=== PATIENT | male | born 1935 | race Caucasian/White ===

== ENCOUNTER 2023-05-12 11:15 | Inpatient (IN) | payer OTHER, MEDICARE ==
[2023-05-12 13:18] LABS: VENOUS BASE EXCESS -5.6 mmol/L (-2-2); VENOUS O2 SATURATION 17.1 % (70-80); VENOUS PCO2 48.7 mmHg (38-52); VENOUS PH 7.262 (7.310-7.410)
[2023-05-12] MEDS ORDERED: ACETAMINOPHEN 1000 MG/100 ML BAG IVPB ONE (13:27)
[2023-05-12] MEDS ORDERED: ACETAMINOPHEN INJECTION 100 ML IVPB ONE (13:33)
[2023-05-12 13:35] LABS: BASO % 0.4 % (0-2.0); EOS % 0.1 % (0-4.5); HEMATOCRIT 41.9 % (35.4-49); HEMOGLOBIN 13.2 GM/dL (11.7-16.9); LYMPH % 7.2 % (8-40); MCH 30.2 pg (25.7-33.7); MCHC 31.6 g/dl (32.0-35.9); MEAN CELL VOLUME 95.6 fl (80-96); MEAN PLT VOLUME 9.7 fl (7.5-11.1); MONO % 7.5 % (3.8-10.2); NEUT % 84.8 % (42.8-82.8); PLATELET COUNT 129 10^3/uL (134-434); RBC 4.38 M/mm3 (4.00-5.60); RDW 15.4 % (11.9-15.9); WHITE BLOOD COUNT 6.8 K/mm3 (4.0-10.0)
[2023-05-12 13:57] LABS: INR 1.22 (0.83-1.09); PROTHROMBIN TIME (PATIENT) 14.1 SEC (9.7-13.0)
[2023-05-12 14:00] LABS: ACTIVATED PTT 32.4 SECONDS (25.2-36.5)
[2023-05-12 14:03] LABS: LACTIC ACID 2.5 mmol/L (0.4-2.0)
[2023-05-12 14:07] LABS: CALCIUM 10.5 mg/dL (8.5-10.1)
[2023-05-12 14:08] LABS: ALBUMIN 3.5 g/dl (3.4-5.0)
[2023-05-12 14:10] LABS: CREATININE 6.1 mg/dL (0.55-1.3)
[2023-05-12 14:12] LABS: TOT PROT 7.9 g/dl (6.4-8.2)
[2023-05-12] MEDS ORDERED: VANCOMYCIN/WATER 1250 MG 1,250 MG/250 ML BAG IVPB ONE ×2 (15:07→15:37)
[2023-05-12] MEDS ORDERED: PIPERACILLIN/TAZOB 3.375 GM 3.375 GM in DEXTROSE 5%-WATER - 50 ML IVPB ONE (15:07)
[2023-05-12] MEDS ORDERED: SODIUM CHLORIDE 0.9% 500 ML INFUS.BAG IV ONE (15:10)
[2023-05-12] MEDS ORDERED: SODIUM CHLORIDE 250 ML IV PRN (15:23)
[2023-05-12] MEDS ORDERED: PIPERACILLIN/TAZOB 3.375 GM 3.375 GM/50 ML BAG IVPB ONE (15:37)
[2023-05-12] MEDS ORDERED: HEPARIN NA (PORCINE) 5,000 UNITS/ML 1ML VIAL SQ SCH (15:45)
[2023-05-12] MEDS: INSULIN SLIDING SCALE (NOVOLOG) 1 VIAL SQ SCH (16:30)
[2023-05-12] MEDS ORDERED: PANTOPRAZOLE 40 MG TABLET PO ONE (17:50)
[2023-05-12] MEDS: PANTOPRAZOLE 40 MG TABLET PO SCH (17:54)
[2023-05-12] MEDS ORDERED: SENNOSIDES 8.6MG TABLET (FP) PO PRN (17:56)
[2023-05-12] MEDS ORDERED: APIXABAN 2.5 MG TABLET ONE (20:47)
[2023-05-12] MEDS ORDERED: SENNOSIDES 8.6MG TABLET (FP) PO ONE (20:48)
[2023-05-12] MEDS ORDERED: MIDODRINE HCL 5 MG TABLET ONE (20:48)
[2023-05-12] MEDS ORDERED: SEVELAMER CARBONATE 800 MG TAB (FP) ONE (20:48)
[2023-05-12] MEDS ORDERED: INSULIN (LEVEMIR) 100 UNITS/ML UNITS SQ ONE (20:52)
[2023-05-12] MEDS: INSULIN (LEVEMIR) 100 UNITS/ML UNITS SQ SCH (22:26)
[2023-05-12] MEDS: SEVELAMER CARBONATE 800 MG TAB (FP) PO SCH (22:26)
[2023-05-12] MEDS: MIDODRINE HCL 5 MG TABLET PO SCH (22:26)
[2023-05-12] MEDS: APIXABAN 2.5 MG TABLET PO SCH (22:26)
[2023-05-12] MEDS: SENNOSIDES 8.6MG TABLET (FP) PO SCH (22:27)
[2023-05-13] MEDS: INSULIN SLIDING SCALE (NOVOLOG) 1 VIAL SQ SCH ×3 (06:46→17:24)
[2023-05-13] MEDS: INSULIN (LEVEMIR) 100 UNITS/ML UNITS SQ SCH ×2 (06:46→21:47)
[2023-05-13] MEDS ORDERED: TAMSULOSIN HCL 0.4 MG CAP PO SCH (08:30)
[2023-05-13] MEDS ORDERED: FINASTERIDE 5 MG TABLET (FP) PO SCH (10:00)
[2023-05-13] MEDS ORDERED: TORSEMIDE 20 MG TABLET (FP) PO SCH (10:00)
[2023-05-13] MEDS: CALCITRIOL 0.25 MCG CAPSULE (FP) PO SCH (10:04)
[2023-05-13] MEDS: ATORVASTATIN CA 80 MG TABLET (FP) PO SCH (10:04)
[2023-05-13] MEDS: CLOPIDOGREL BISULFATE 75 MG TABLET (FP) PO SCH (10:05)
[2023-05-13] MEDS: MIDODRINE HCL 5 MG TABLET PO SCH ×3 (10:05→17:51)
[2023-05-13] MEDS: APIXABAN 2.5 MG TABLET PO SCH ×2 (10:05→21:48)
[2023-05-13] MEDS: SEVELAMER CARBONATE 800 MG TAB (FP) PO SCH ×3 (10:05→19:14)
[2023-05-13] MEDS: PANTOPRAZOLE 40 MG TABLET PO SCH (10:05)
[2023-05-13 10:07] LABS: HEMATOCRIT 35.9 % (35.4-49); HEMOGLOBIN 11.5 GM/dL (11.7-16.9); MCH 30.6 pg (25.7-33.7); MCHC 32.1 g/dl (32.0-35.9); MEAN CELL VOLUME 95.5 fl (80-96); MEAN PLT VOLUME 10.2 fl (7.5-11.1); PLATELET COUNT 113 10^3/uL (134-434); RBC 3.76 M/mm3 (4.00-5.60); RDW 15.4 % (11.9-15.9); WHITE BLOOD COUNT 5.5 K/mm3 (4.0-10.0)
[2023-05-13 10:40] LABS: POTASSIUM 4.1 mmol/L (3.5-5.1)
[2023-05-13 10:45] LABS: CALCIUM 9.1 mg/dL (8.5-10.1)
[2023-05-13 10:47] LABS: BLOOD UREA NITROGEN 61.2 mg/dL (7-18)
[2023-05-13 10:49] LABS: CREATININE 6.7 mg/dL (0.55-1.3)
[2023-05-13 10:50] LABS: BILIRUBIN,TOTAL 0.7 mg/dL (0.2-1)
[2023-05-13 10:54] LABS: ALBUMIN 2.7 g/dl (3.4-5.0); TOT PROT 5.9 g/dl (6.4-8.2)
[2023-05-13 12:11] LABS: ANISOCYTOSIS 0; HELMET CELLS 0; HOWELL-JOLLY BODIES 0; MACROCYTOSIS 0; OVALOCYTE 0; ROULEAU 0; SICKELED CELLS 0; TARGET CELLS 0; TEAR DROP CELLS 0; TOXIC GRANULATION 0
[2023-05-13] MEDS ORDERED: PIPERACILLIN/TAZOBACTAM 2.25 GM VIAL IVPB ONE (12:53)
[2023-05-13] MEDS: PIPERACILLIN/TAZOB 2.25 GM 2.25 GM in DEXTROSE 5%-WATER - 50 ML IVPB SCH ×2 (13:13→17:51)
[2023-05-13] MEDS ORDERED: SODIUM CHLORIDE 250 ML IV PRN (13:34)
[2023-05-13] MEDS: ALBUMIN HUMAN 25% 12.5 GM/50 ML VIAL IV SCH ×4 (14:30→17:51)
[2023-05-13] MEDS: LIPASE/PROTEASE/AMYLASE 24,000 UNIT CAPSULE PO SCH (17:53)
[2023-05-13 19:15] LABS: EPI CELLS 9 /uL (0-25.1); HYALINE CASTS 1 /uL (0-3.1); URINE APPEARANCE CLEAR; URINE BACTERIA 2 /uL (0-1359); URINE BILIRUBIN NEGATIVE (NEGATIVE); URINE COLOR YELLOW; URINE GLUCOSE (UA) 2+ (NEGATIVE); URINE KETONE NEGATIVE (NEGATIVE); URINE LEUK ESTERASE TRACE (NEGATIVE); URINE NITRITE NEGATIVE (NEGATIVE); URINE PROTEIN 1+ (NEGATIVE); URINE UROBILINOGEN 0.2 mg/dL (0.2-1.0); URINE WBC 41 /uL (0-25.8)
[2023-05-13 19:40] LABS: URINE CRYSTALS FEW /hpf; URINE RBC 70.7 /uL (0-23.9)
[2023-05-13 19:41] LABS: YEAST NONE SEEN (NEGATIVE)
[2023-05-13] MEDS: SENNOSIDES 8.6MG TABLET (FP) PO SCH (21:48)
[2023-05-13] MEDS ORDERED: ATORVASTATIN CA 80 MG TABLET (FP) PO SCH (22:00)
[2023-05-13] MEDS ORDERED: MELATONIN 1 MG TABLET PO ONE (22:45)
[2023-05-14] MEDS: PIPERACILLIN/TAZOB 2.25 GM 2.25 GM in DEXTROSE 5%-WATER - 50 ML IVPB SCH ×3 (01:22→17:44)
[2023-05-14] MEDS: INSULIN SLIDING SCALE (NOVOLOG) 1 VIAL SQ SCH ×4 (06:15→22:20)
[2023-05-14] MEDS ORDERED: INSULIN (LEVEMIR) 100 UNITS/ML UNITS SQ SCH (07:00)
[2023-05-14] MEDS: MIDODRINE HCL 5 MG TABLET PO SCH ×2 (07:10→14:47)
[2023-05-14] MEDS: INSULIN (LEVEMIR) 100 UNITS/ML UNITS SQ SCH ×2 (07:11→22:21)
[2023-05-14 08:34] LABS: HEMATOCRIT 30.6 % (35.4-49); HEMOGLOBIN 10.2 GM/dL (11.7-16.9); MCH 30.9 pg (25.7-33.7); MCHC 33.3 g/dl (32.0-35.9); MEAN CELL VOLUME 92.9 fl (80-96); MEAN PLT VOLUME 10.2 fl (7.5-11.1); PLATELET COUNT 96 10^3/uL (134-434); RBC 3.29 M/mm3 (4.00-5.60); RDW 15.5 % (11.9-15.9); WHITE BLOOD COUNT 3.8 K/mm3 (4.0-10.0)
[2023-05-14 08:50] LABS: POTASSIUM 3.6 mmol/L (3.5-5.1)
[2023-05-14 09:04] LABS: ALBUMIN 2.7 g/dl (3.4-5.0); CALCIUM 8.5 mg/dL (8.5-10.1)
[2023-05-14 09:07] LABS: CREATININE 4.2 mg/dL (0.55-1.3)
[2023-05-14 09:09] LABS: BILIRUBIN,TOTAL 0.7 mg/dL (0.2-1); TOT PROT 5.7 g/dl (6.4-8.2)
[2023-05-14 09:20] LABS: BLOOD UREA NITROGEN 31.1 mg/dL (7-18)
[2023-05-14] MEDS: CALCITRIOL 0.25 MCG CAPSULE (FP) PO SCH (09:43)
[2023-05-14] MEDS: APIXABAN 2.5 MG TABLET PO SCH ×2 (09:44→22:20)
[2023-05-14] MEDS: SEVELAMER CARBONATE 800 MG TAB (FP) PO SCH ×3 (09:44→17:45)
[2023-05-14] MEDS: PANTOPRAZOLE 40 MG TABLET PO SCH (09:44)
[2023-05-14] MEDS: ATORVASTATIN CA 80 MG TABLET (FP) PO SCH (09:44)
[2023-05-14] MEDS: CLOPIDOGREL BISULFATE 75 MG TABLET (FP) PO SCH (09:44)
[2023-05-14] MEDS: LIPASE/PROTEASE/AMYLASE 24,000 UNIT CAPSULE PO SCH ×3 (09:45→17:45)
[2023-05-14 10:12] LABS: ANISOCYTOSIS 1+; MACROCYTOSIS 0
[2023-05-14] MEDS ORDERED: INSULIN (NOVOLOG) ASPART 100 UNITS/ML 10ML VIAL ONE ×2 (11:43→17:18)
[2023-05-14] MEDS: SENNOSIDES 8.6MG TABLET (FP) PO SCH (22:20)
[2023-05-15] MEDS: SENNOSIDES 8.6MG TABLET (FP) PO SCH ×2 (00:17→21:34)
[2023-05-15] MEDS: PIPERACILLIN/TAZOB 2.25 GM 2.25 GM in DEXTROSE 5%-WATER - 50 ML IVPB SCH ×3 (01:14→17:40)
[2023-05-15] MEDS: ACETAMINOPHEN 325 MG TABLET (FP) PO PRN (01:20)
[2023-05-15] MEDS ORDERED: INSULIN (NOVOLOG) ASPART 100 UNITS/ML 10ML VIAL ONE ×2 (06:03→21:26)
[2023-05-15] MEDS: INSULIN (LEVEMIR) 100 UNITS/ML UNITS SQ SCH ×2 (06:48→21:32)
[2023-05-15] MEDS: INSULIN SLIDING SCALE (NOVOLOG) 1 VIAL SQ SCH ×4 (06:49→21:33)
[2023-05-15] MEDS: MIDODRINE HCL 5 MG TABLET PO SCH ×2 (06:49→14:30)
[2023-05-15 08:13] LABS: BASO % 0.9 % (0-2.0); EOS % 4.1 % (0-4.5); HEMATOCRIT 32.6 % (35.4-49); HEMOGLOBIN 10.4 GM/dL (11.7-16.9); LYMPH % 18.1 % (8-40); MCH 30.5 pg (25.7-33.7); MCHC 31.9 g/dl (32.0-35.9); MEAN CELL VOLUME 95.7 fl (80-96); MEAN PLT VOLUME 9.5 fl (7.5-11.1); NEUT % 56.9 % (42.8-82.8); PLATELET COUNT 112 10^3/uL (134-434); RDW 15.3 % (11.9-15.9); WHITE BLOOD COUNT 3.8 K/mm3 (4.0-10.0)
[2023-05-15] MEDS: SEVELAMER CARBONATE 800 MG TAB (FP) PO SCH ×3 (08:24→17:40)
[2023-05-15] MEDS: LIPASE/PROTEASE/AMYLASE 24,000 UNIT CAPSULE PO SCH ×3 (08:24→17:40)
[2023-05-15 08:37] LABS: POTASSIUM 4.3 mmol/L (3.5-5.1)
[2023-05-15 08:45] LABS: CALCIUM 9.1 mg/dL (8.5-10.1)
[2023-05-15 08:46] LABS: ALBUMIN 2.7 g/dl (3.4-5.0); BLOOD UREA NITROGEN 39.9 mg/dL (7-18)
[2023-05-15 08:48] LABS: BILIRUBIN,TOTAL 0.8 mg/dL (0.2-1)
[2023-05-15 08:49] LABS: CREATININE 5.5 mg/dL (0.55-1.3)
[2023-05-15 08:50] LABS: TOT PROT 5.8 g/dl (6.4-8.2)
[2023-05-15] MEDS: CALCITRIOL 0.25 MCG CAPSULE (FP) PO SCH (10:04)
[2023-05-15] MEDS: ATORVASTATIN CA 80 MG TABLET (FP) PO SCH (10:05)
[2023-05-15] MEDS: APIXABAN 2.5 MG TABLET PO SCH ×2 (10:05→21:32)
[2023-05-15] MEDS: CLOPIDOGREL BISULFATE 75 MG TABLET (FP) PO SCH (10:05)
[2023-05-15] MEDS: PANTOPRAZOLE 40 MG TABLET PO SCH (10:05)
[2023-05-15] MEDS ORDERED: SODIUM CHLORIDE 250 ML IV PRN (13:25)
[2023-05-15] MEDS: TORSEMIDE 20 MG TABLET (FP) PO SCH (15:08)
[2023-05-15] MEDS ORDERED: MELATONIN 5 MG TABLETS PO PRN (22:00)
[2023-05-16] MEDS: PIPERACILLIN/TAZOB 2.25 GM 2.25 GM in DEXTROSE 5%-WATER - 50 ML IVPB SCH ×4 (01:50→17:38)
[2023-05-16] MEDS: INSULIN SLIDING SCALE (NOVOLOG) 1 VIAL SQ SCH ×5 (06:18→22:42)
[2023-05-16] MEDS: INSULIN (LEVEMIR) 100 UNITS/ML UNITS SQ SCH ×2 (06:22→22:37)
[2023-05-16] MEDS: MIDODRINE HCL 5 MG TABLET PO SCH ×2 (06:22→14:58)
[2023-05-16] MEDS: SEVELAMER CARBONATE 800 MG TAB (FP) PO SCH ×3 (08:54→17:34)
[2023-05-16] MEDS: LIPASE/PROTEASE/AMYLASE 24,000 UNIT CAPSULE PO SCH ×4 (08:54→17:34)
[2023-05-16 09:50] LABS: BASO % 0.8 % (0-2.0); EOS % 3.1 % (0-4.5); HEMATOCRIT 34.8 % (35.4-49); HEMOGLOBIN 11.1 GM/dL (11.7-16.9); LYMPH % 22.4 % (8-40); MCH 30.2 pg (25.7-33.7); MCHC 31.9 g/dl (32.0-35.9); MEAN CELL VOLUME 94.8 fl (80-96); MEAN PLT VOLUME 10.1 fl (7.5-11.1); NEUT % 59.7 % (42.8-82.8); PLATELET COUNT 144 10^3/uL (134-434); RBC 3.68 M/mm3 (4.00-5.60); RDW 14.9 % (11.9-15.9); WHITE BLOOD COUNT 5.8 K/mm3 (4.0-10.0)
[2023-05-16 10:05] LABS: POTASSIUM 4.8 mmol/L (3.5-5.1)
[2023-05-16 10:08] LABS: CALCIUM 8.4 mg/dL (8.5-10.1)
[2023-05-16 10:09] LABS: ALBUMIN 2.7 g/dl (3.4-5.0); BLOOD UREA NITROGEN 48.6 mg/dL (7-18)
[2023-05-16] MEDS: ALBUMIN HUMAN 25% 12.5 GM/50 ML VIAL IV SCH ×4 (10:10→12:14)
[2023-05-16 10:12] LABS: CREATININE 6.2 mg/dL (0.55-1.3)
[2023-05-16 10:14] LABS: BILIRUBIN,TOTAL 1.1 mg/dL (0.2-1)
[2023-05-16] MEDS ORDERED: EPOETIN ALFA-EPBX 4,000 UNIT/ML VIAL IVPUSH ONE (10:45)
[2023-05-16] MEDS: TORSEMIDE 20 MG TABLET (FP) PO SCH (10:46)
[2023-05-16] MEDS: CALCITRIOL 0.25 MCG CAPSULE (FP) PO SCH ×2 (10:56→12:54)
[2023-05-16] MEDS: PANTOPRAZOLE 40 MG TABLET PO SCH ×2 (10:56→12:55)
[2023-05-16] MEDS: CLOPIDOGREL BISULFATE 75 MG TABLET (FP) PO SCH ×2 (10:56→12:54)
[2023-05-16] MEDS: APIXABAN 2.5 MG TABLET PO SCH ×3 (10:56→22:29)
[2023-05-16] MEDS: ATORVASTATIN CA 80 MG TABLET (FP) PO SCH ×2 (10:56→12:54)
[2023-05-16] MEDS ORDERED: INSULIN (NOVOLOG) ASPART 100 UNITS/ML 10ML VIAL ONE ×2 (12:45→22:39)
[2023-05-16] MEDS ORDERED: ALBUMIN HUMAN 25% 12.5 GM/50 ML VIAL IV SCH (13:30)
[2023-05-16] MEDS: ACETAMINOPHEN 325 MG TABLET (FP) PO PRN (14:58)
[2023-05-16] MEDS: SENNOSIDES 8.6MG TABLET (FP) PO SCH (22:29)
[2023-05-17] MEDS: PIPERACILLIN/TAZOB 2.25 GM 2.25 GM in DEXTROSE 5%-WATER - 50 ML IVPB SCH ×2 (01:22→09:22)
[2023-05-17] MEDS: MIDODRINE HCL 5 MG TABLET PO SCH ×2 (06:22→14:45)
[2023-05-17] MEDS: INSULIN (LEVEMIR) 100 UNITS/ML UNITS SQ SCH ×2 (06:34→22:37)
[2023-05-17] MEDS: INSULIN SLIDING SCALE (NOVOLOG) 1 VIAL SQ SCH ×5 (06:34→20:52)
[2023-05-17] MEDS: LIPASE/PROTEASE/AMYLASE 24,000 UNIT CAPSULE PO SCH ×3 (09:22→17:13)
[2023-05-17] MEDS: SEVELAMER CARBONATE 800 MG TAB (FP) PO SCH ×3 (09:22→17:13)
[2023-05-17] MEDS: PANTOPRAZOLE 40 MG TABLET PO SCH (09:23)
[2023-05-17] MEDS: APIXABAN 2.5 MG TABLET PO SCH ×2 (09:23→22:37)
[2023-05-17] MEDS: CALCITRIOL 0.25 MCG CAPSULE (FP) PO SCH (09:23)
[2023-05-17] MEDS: ATORVASTATIN CA 80 MG TABLET (FP) PO SCH (09:23)
[2023-05-17] MEDS: CLOPIDOGREL BISULFATE 75 MG TABLET (FP) PO SCH (09:23)
[2023-05-17] MEDS: TORSEMIDE 20 MG TABLET (FP) PO SCH (10:40)
[2023-05-17] MEDS ORDERED: INSULIN (NOVOLOG) ASPART 100 UNITS/ML 10ML VIAL ONE ×2 (12:07→20:11)
[2023-05-17] MEDS: CEFTRIAXONE 2 GM in DEXTROSE 5%-WATER 100 ML IVPB SCH (14:45)
[2023-05-17] MEDS: SENNOSIDES 8.6MG TABLET (FP) PO SCH ×2 (22:37→22:44)
[2023-05-18] MEDS: INSULIN SLIDING SCALE (NOVOLOG) 1 VIAL SQ SCH ×6 (00:47→20:17)
[2023-05-18] MEDS ORDERED: INSULIN (NOVOLOG) ASPART 100 UNITS/ML 10ML VIAL ONE ×3 (00:48→11:13)
[2023-05-18] MEDS: INSULIN (LEVEMIR) 100 UNITS/ML UNITS SQ SCH ×2 (06:03→22:37)
[2023-05-18] MEDS: MIDODRINE HCL 5 MG TABLET PO SCH ×2 (06:04→13:53)
[2023-05-18] MEDS: LIPASE/PROTEASE/AMYLASE 24,000 UNIT CAPSULE PO SCH ×3 (08:18→17:20)
[2023-05-18] MEDS: SEVELAMER CARBONATE 800 MG TAB (FP) PO SCH ×3 (08:18→17:20)
[2023-05-18] MEDS: APIXABAN 2.5 MG TABLET PO SCH (09:16)
[2023-05-18] MEDS: CALCITRIOL 0.25 MCG CAPSULE (FP) PO SCH (09:16)
[2023-05-18] MEDS: CEFTRIAXONE 2 GM in DEXTROSE 5%-WATER 100 ML IVPB SCH (09:16)
[2023-05-18] MEDS: PANTOPRAZOLE 40 MG TABLET PO SCH (09:16)
[2023-05-18] MEDS: TORSEMIDE 20 MG TABLET (FP) PO SCH (09:16)
[2023-05-18] MEDS: CLOPIDOGREL BISULFATE 75 MG TABLET (FP) PO SCH (09:16)
[2023-05-18] MEDS: ATORVASTATIN CA 80 MG TABLET (FP) PO SCH (09:17)
[2023-05-18 09:31] LABS: BASO % 0.8 % (0-2.0); EOS % 2.4 % (0-4.5); HEMATOCRIT 38.4 % (35.4-49); HEMOGLOBIN 12.7 GM/dL (11.7-16.9); LYMPH % 18.1 % (8-40); MCH 30.7 pg (25.7-33.7); MCHC 33.1 g/dl (32.0-35.9); MEAN CELL VOLUME 92.8 fl (80-96); MEAN PLT VOLUME 10.1 fl (7.5-11.1); MONO % 10.9 % (3.8-10.2); NEUT % 67.8 % (42.8-82.8); PLATELET COUNT 185 10^3/uL (134-434); RBC 4.13 M/mm3 (4.00-5.60); RDW 14.8 % (11.9-15.9); WHITE BLOOD COUNT 7.8 K/mm3 (4.0-10.0)
[2023-05-18 09:56] LABS: POTASSIUM 4.5 mmol/L (3.5-5.1)
[2023-05-18 09:58] LABS: CALCIUM 8.9 mg/dL (8.5-10.1)
[2023-05-18 09:59] LABS: ALBUMIN 2.8 g/dl (3.4-5.0); BLOOD UREA NITROGEN 40.7 mg/dL (7-18)
[2023-05-18 10:02] LABS: CREATININE 5.3 mg/dL (0.55-1.3)
[2023-05-18 10:04] LABS: BILIRUBIN,TOTAL 0.6 mg/dL (0.2-1); TOT PROT 6.5 g/dl (6.4-8.2)
[2023-05-18 16:38] VITALS: BMI 19.8
[2023-05-18] MEDS ORDERED: PANTOPRAZOLE 40 MG TABLET PO SCH (19:00)
[2023-05-18] MEDS: PANTOPRAZOLE SODIUM 40 MG VIAL IVPUSH SCH (19:51)
[2023-05-18] MEDS: SENNOSIDES 8.6MG TABLET (FP) PO SCH (22:38)
[2023-05-19] MEDS: INSULIN SLIDING SCALE (NOVOLOG) 1 VIAL SQ SCH ×6 (01:02→21:29)
[2023-05-19] MEDS: MIDODRINE HCL 5 MG TABLET PO SCH ×2 (06:27→16:36)
[2023-05-19] MEDS: LIPASE/PROTEASE/AMYLASE 24,000 UNIT CAPSULE PO SCH ×4 (07:04→20:49)
[2023-05-19] MEDS: SEVELAMER CARBONATE 800 MG TAB (FP) PO SCH ×4 (07:04→20:49)
[2023-05-19] MEDS ORDERED: DEXTROSE 50%-WATER 25 GM/50 ML DISP.SYRIN IVPUSH ONE ×2 (08:15→08:30)
[2023-05-19] MEDS: CALCITRIOL 0.25 MCG CAPSULE (FP) PO SCH ×2 (09:04→20:47)
[2023-05-19] MEDS: ATORVASTATIN CA 80 MG TABLET (FP) PO SCH ×2 (09:04→20:46)
[2023-05-19] MEDS: TORSEMIDE 20 MG TABLET (FP) PO SCH ×2 (09:04→20:50)
[2023-05-19] MEDS: CEFTRIAXONE 2 GM in DEXTROSE 5%-WATER 100 ML IVPB SCH ×2 (09:04→20:45)
[2023-05-19 09:24] LABS: BASO % 0.8 % (0-2.0); EOS % 0.3 % (0-4.5); HEMATOCRIT 36.1 % (35.4-49); HEMOGLOBIN 12.3 GM/dL (11.7-16.9); LYMPH % 9.2 % (8-40); MCH 31.8 pg (25.7-33.7); MEAN CELL VOLUME 93.7 fl (80-96); MEAN PLT VOLUME 9.7 fl (7.5-11.1); MONO % 11.5 % (3.8-10.2); NEUT % 78.2 % (42.8-82.8); PLATELET COUNT 189 10^3/uL (134-434); RBC 3.85 M/mm3 (4.00-5.60); RDW 14.6 % (11.9-15.9); WHITE BLOOD COUNT 10.8 K/mm3 (4.0-10.0)
[2023-05-19 09:42] LABS: POTASSIUM 5.5 mmol/L (3.5-5.1)
[2023-05-19] MEDS: CLOPIDOGREL BISULFATE 75 MG TABLET (FP) PO SCH ×2 (09:44→20:47)
[2023-05-19] MEDS: PANTOPRAZOLE SODIUM 40 MG VIAL IVPUSH SCH (09:51)
[2023-05-19 09:54] LABS: ALBUMIN 2.8 g/dl (3.4-5.0); CALCIUM 9.7 mg/dL (8.5-10.1)
[2023-05-19 09:57] LABS: BLOOD UREA NITROGEN 48.8 mg/dL (7-18); CREATININE 6.4 mg/dL (0.55-1.3)
[2023-05-19 09:59] LABS: BILIRUBIN,TOTAL 0.9 mg/dL (0.2-1); TOT PROT 6.7 g/dl (6.4-8.2)
[2023-05-19] MEDS: ACETAMINOPHEN 325 MG TABLET (FP) PO PRN ×2 (11:16→22:21)
[2023-05-19] MEDS ORDERED: SODIUM CHLORIDE 250 ML IV PRN ×2 (11:41→14:34)
[2023-05-19] MEDS ORDERED: HEPARIN NA (PORCINE) 5,000 UNITS/ML 1ML VIAL ONE (12:19)
[2023-05-19] MEDS ORDERED: LIDOCAINE HCL 1%, 10 MG/ML (20ML VIAL) ONE (12:40)
[2023-05-19] MEDS ORDERED: FENTANYL CITRATE/PF 50 MCG/ML VIAL ONE (13:16)
[2023-05-19] MEDS ORDERED: MIDAZOLAM HCL 2 MG/2 ML SINGLE DOSE VIAL ONE (13:16)
[2023-05-19] MEDS ORDERED: ONDANSETRON 4 MG/2 ML VIAL ONE (13:34)
[2023-05-19] MEDS ORDERED: ceFAZolin SODIUM 1 GM VIAL ONE (13:34)
[2023-05-19] MEDS ORDERED: ceFAZolin SODIUM 1 GM VIAL IVPB ONE (13:35)
[2023-05-19] MEDS ORDERED: PROPOFOL 20 ML ONE (13:36)
[2023-05-19] MEDS ORDERED: HEPARIN NA (PORCINE) 5,000 UNITS/ML 1ML VIAL SQ ONE (13:37)
[2023-05-19] MEDS ORDERED: LIDOCAINE 1% P/F 10 MG/ML VIAL INF ONE (13:37)
[2023-05-19] MEDS ORDERED: HEPARIN NA (PORCINE) 1,000 UNITS/ML 10ML M-D VIAL SQ ONE (13:37)
[2023-05-19] MEDS ORDERED: SODIUM CHLORIDE 1,000 ML IV SCH (14:15)
[2023-05-19] MEDS ORDERED: MELATONIN 5 MG TABLETS PO PRN (14:34)
[2023-05-19] MEDS ORDERED: MIDODRINE HCL 5 MG TABLET PO SCH (15:30)
[2023-05-19] MEDS: SODIUM CHLORIDE 1,000 ML IV SCH (18:26)
[2023-05-19] MEDS ORDERED: INSULIN (NOVOLOG) ASPART 100 UNITS/ML 10ML VIAL ONE (21:19)
[2023-05-19] MEDS: INSULIN (LEVEMIR) 100 UNITS/ML UNITS SQ SCH (21:27)
[2023-05-19] MEDS: SENNOSIDES 8.6MG TABLET (FP) PO SCH (21:30)
[2023-05-19] MEDS: APIXABAN 2.5 MG TABLET PO SCH (21:30)
[2023-05-20] MEDS ORDERED: INSULIN (NOVOLOG) ASPART 100 UNITS/ML 10ML VIAL ONE ×4 (01:01→23:30)
[2023-05-20] MEDS: INSULIN SLIDING SCALE (NOVOLOG) 1 VIAL SQ SCH ×7 (01:02→22:32)
[2023-05-20] MEDS: MIDODRINE HCL 5 MG TABLET PO SCH ×2 (06:30→13:51)
[2023-05-20] MEDS: INSULIN (LEVEMIR) 100 UNITS/ML UNITS SQ SCH ×2 (06:30→22:38)
[2023-05-20] MEDS ORDERED: ALBUMIN HUMAN 25% 12.5 GM/50 ML VIAL IVPB SCH (07:45)
[2023-05-20] MEDS ORDERED: SODIUM CHLORIDE 250 ML IV PRN (07:45)
[2023-05-20] MEDS: LIPASE/PROTEASE/AMYLASE 24,000 UNIT CAPSULE PO SCH ×3 (08:27→18:01)
[2023-05-20] MEDS: SEVELAMER CARBONATE 800 MG TAB (FP) PO SCH ×3 (08:28→18:01)
[2023-05-20 08:31] LABS: BASO % 1.2 % (0-2.0); HEMATOCRIT 35.8 % (35.4-49); HEMOGLOBIN 11.3 GM/dL (11.7-16.9); LYMPH % 11.5 % (8-40); MCH 30.2 pg (25.7-33.7); MCHC 31.4 g/dl (32.0-35.9); MEAN PLT VOLUME 9.6 fl (7.5-11.1); MONO % 15.2 % (3.8-10.2); NEUT % 70.1 % (42.8-82.8); PLATELET COUNT 208 10^3/uL (134-434); RBC 3.73 M/mm3 (4.00-5.60); RDW 15.3 % (11.9-15.9); WHITE BLOOD COUNT 8.5 K/mm3 (4.0-10.0)
[2023-05-20 08:59] LABS: POTASSIUM 4.4 mmol/L (3.5-5.1)
[2023-05-20 09:03] LABS: BLOOD UREA NITROGEN 27.4 mg/dL (7-18); CALCIUM 8.8 mg/dL (8.5-10.1)
[2023-05-20 09:07] LABS: CREATININE 4.1 mg/dL (0.55-1.3)
[2023-05-20] MEDS ORDERED: PANTOPRAZOLE SODIUM 40 MG VIAL IVPUSH SCH (10:00)
[2023-05-20 11:11] VITALS: RESP 18
[2023-05-20] MEDS: CLOPIDOGREL BISULFATE 75 MG TABLET (FP) PO SCH (13:37)
[2023-05-20] MEDS: TORSEMIDE 20 MG TABLET (FP) PO SCH (13:37)
[2023-05-20] MEDS: CALCITRIOL 0.25 MCG CAPSULE (FP) PO SCH (13:38)
[2023-05-20] MEDS: ATORVASTATIN CA 80 MG TABLET (FP) PO SCH (13:38)
[2023-05-20] MEDS: APIXABAN 2.5 MG TABLET PO SCH ×2 (13:39→22:33)
[2023-05-20] MEDS: CEFTRIAXONE 2 GM in DEXTROSE 5%-WATER 100 ML IVPB SCH (13:40)
[2023-05-20] MEDS: ACETAMINOPHEN 325 MG TABLET (FP) PO PRN (16:48)
[2023-05-20] MEDS: SODIUM CHLORIDE 1,000 ML IV SCH (18:08)
[2023-05-20] MEDS ORDERED: PANTOPRAZOLE 40 MG TABLET PO SCH (22:09)
[2023-05-20] MEDS ORDERED: MAG HYDROX/AL HYDROX/SIMETH 30 ML UNIT-DOSE CUP PO ONE (22:11)
[2023-05-20] MEDS ORDERED: ACETAMINOPHEN 325 MG TABLET (FP) PO ONE (22:14)
[2023-05-20] MEDS: SENNOSIDES 8.6MG TABLET (FP) PO SCH (22:33)
[2023-05-20] MEDS ORDERED: INSULIN (LEVEMIR) 100 UNITS/ML UNITS SQ ONE (23:30)
[2023-05-21] MEDS: INSULIN SLIDING SCALE (NOVOLOG) 1 VIAL SQ SCH ×4 (00:51→12:21)
[2023-05-21] MEDS: MIDODRINE HCL 5 MG TABLET PO SCH ×2 (06:58→14:01)
[2023-05-21] MEDS ORDERED: INSULIN (LEVEMIR) 100 UNITS/ML UNITS SQ SCH (07:01)
[2023-05-21] MEDS: INSULIN (LEVEMIR) 100 UNITS/ML UNITS SQ SCH (08:22)
[2023-05-21] MEDS: LIPASE/PROTEASE/AMYLASE 24,000 UNIT CAPSULE PO SCH ×2 (08:28→12:20)
[2023-05-21] MEDS: SEVELAMER CARBONATE 800 MG TAB (FP) PO SCH ×2 (08:29→12:21)
[2023-05-21] MEDS: CEFTRIAXONE 2 GM in DEXTROSE 5%-WATER 100 ML IVPB SCH (09:31)
[2023-05-21] MEDS: APIXABAN 2.5 MG TABLET PO SCH (09:32)
[2023-05-21] MEDS: CLOPIDOGREL BISULFATE 75 MG TABLET (FP) PO SCH (09:32)
[2023-05-21] MEDS: TORSEMIDE 20 MG TABLET (FP) PO SCH (09:32)
[2023-05-21] MEDS: ATORVASTATIN CA 80 MG TABLET (FP) PO SCH (09:32)
[2023-05-21] MEDS: CALCITRIOL 0.25 MCG CAPSULE (FP) PO SCH (09:32)
[2023-05-21 09:33] LABS: BASO % 1.1 % (0-2.0); EOS % 1.3 % (0-4.5); HEMOGLOBIN 10.5 GM/dL (11.7-16.9); LYMPH % 9.3 % (8-40); MCH 30.6 pg (25.7-33.7); MCHC 31.8 g/dl (32.0-35.9); MEAN CELL VOLUME 96.1 fl (80-96); MEAN PLT VOLUME 9.7 fl (7.5-11.1); MONO % 12.2 % (3.8-10.2); NEUT % 76.1 % (42.8-82.8); PLATELET COUNT 202 10^3/uL (134-434); RBC 3.43 M/mm3 (4.00-5.60); RDW 15.2 % (11.9-15.9); WHITE BLOOD COUNT 8.9 K/mm3 (4.0-10.0)
[2023-05-21 09:51] LABS: POTASSIUM 4.7 mmol/L (3.5-5.1)
[2023-05-21 09:52] LABS: CALCIUM 9.1 mg/dL (8.5-10.1)
[2023-05-21 09:53] LABS: BLOOD UREA NITROGEN 24.2 mg/dL (7-18)
[2023-05-21 09:56] LABS: CREATININE 3.8 mg/dL (0.55-1.3)
[2023-05-21] MEDS ORDERED: PANTOPRAZOLE 40 MG TABLET PO SCH (10:00)
[2023-05-21] MEDS: ACETAMINOPHEN 325 MG TABLET (FP) PO PRN (10:27)
[2023-05-21 15:30] VITALS: BP 118/55; PULSE 76; TEMP 98.3
== END 2023-05-21 15:58 | disposition home or self-care (01) | DRG 193 ==
LOC: JER 11:15 → JERBED 15:03 → J8W 05-13 02:40
PROVIDERS: ADMIT Internal Medicine; ATTEND Internal Medicine
PROC: 5A1D70Z Performance of Urinary Filtration, Intermittent, Less than 6 Hours Per Day (ICD-10-PCS; principal; 2023-05-13)
PROC: 5A1D70Z Performance of Urinary Filtration, Intermittent, Less than 6 Hours Per Day (ICD-10-PCS; 2023-05-16)
PROC: 5A1D70Z Performance of Urinary Filtration, Intermittent, Less than 6 Hours Per Day (ICD-10-PCS; 2023-05-19)
PROC: 05HM33Z Insertion of Infusion Device into Right Internal Jugular Vein, Percutaneous Approach (ICD-10-PCS; 2023-05-19)
PROC: B513ZZA Fluoroscopy of Right Jugular Veins, Guidance (ICD-10-PCS; 2023-05-19)
PROC: 5A1D70Z Performance of Urinary Filtration, Intermittent, Less than 6 Hours Per Day (ICD-10-PCS; 2023-05-20)
DX: J18.9 Pneumonia, unspecified organism (principal); G92.8 Other toxic encephalopathy; N18.6 End stage renal disease; E87.1 Hypo-osmolality and hyponatremia; E87.20 Acidosis, unspecified; R78.81 Bacteremia; J98.11 Atelectasis; I13.2 Hypertensive heart and chronic kidney disease with heart failure and with stage 5 chronic kidney disease, or end stage renal disease; I25.10 Atherosclerotic heart disease of native coronary artery without angina pectoris; E11.42 Type 2 diabetes mellitus with diabetic polyneuropathy; R55 Syncope and collapse; I50.9 Heart failure, unspecified; D69.6 Thrombocytopenia, unspecified; E83.39 Other disorders of phosphorus metabolism; R79.89 Other specified abnormal findings of blood chemistry; E78.5 Hyperlipidemia, unspecified; G47.00 Insomnia, unspecified; E55.9 Vitamin D deficiency, unspecified; M62.81 Muscle weakness (generalized); B96.1 Klebsiella pneumoniae [K. pneumoniae] as the cause of diseases classified elsewhere; K59.00 Constipation, unspecified; R26.81 Unsteadiness on feet; N40.0 Benign prostatic hyperplasia without lower urinary tract symptoms; R91.8 Other nonspecific abnormal finding of lung field; E11.22 Type 2 diabetes mellitus with diabetic chronic kidney disease; Z99.2 Dependence on renal dialysis; Z89.422 Acquired absence of other left toe(s); Z95.5 Presence of coronary angioplasty implant and graft; Z95.1 Presence of aortocoronary bypass graft
CPT/HCPCS: 0241U-QW; 36415; 70450-TC; 71045-TC-FY; 71250-TC; 76000-TC-FY; 80048; 80053; 81003; 82607; 82728; 82803; 82947; 82962; 83036; 83540; 83550; 83605; 83735; 83880; 84100; 84443; 84484; 85025; 85610; 85730; 86704; 86803; 86850; 86900; 86901; 87040; 87086; 87186; 87340; 87517; 87635; 93005; 93010; 93306-TC; 94760; 97116-GP; 97161-GP; 99285-25; C1750; J1644; P9047; Q5106

== ENCOUNTER 2023-05-21 18:06 | Observation (INO) | payer OTHER, MEDICARE ==
[2023-05-21 19:34] LABS: BASO % 0.6 % (0-2.0); EOS % 1.3 % (0-4.5); HEMATOCRIT 34.3 % (35.4-49); HEMOGLOBIN 11.2 GM/dL (11.7-16.9); LYMPH % 7.9 % (8-40); MCH 31.6 pg (25.7-33.7); MCHC 32.7 g/dl (32.0-35.9); MEAN CELL VOLUME 96.5 fl (80-96); MEAN PLT VOLUME 9.9 fl (7.5-11.1); MONO % 11.7 % (3.8-10.2); NEUT % 78.5 % (42.8-82.8); PLATELET COUNT 198 10^3/uL (134-434); RBC 3.56 M/mm3 (4.00-5.60); RDW 15.4 % (11.9-15.9); WHITE BLOOD COUNT 8.6 K/mm3 (4.0-10.0)
[2023-05-21 19:55] LABS: CHLORIDE 96 mmol/L (98-107); POTASSIUM 4.8 mmol/L (3.5-5.1); SODIUM 133 mmol/L (136-145)
[2023-05-21 20:00] LABS: ALBUMIN 2.8 g/dl (3.4-5.0); ANION GAP 7 mmol/L (4-13); BLOOD UREA NITROGEN 30.7 mg/dL (7-18); CALCIUM 9.4 mg/dL (8.5-10.1); CO2 30 mmol/L (21-32)
[2023-05-21 20:02] LABS: INR 1.32 (0.83-1.09); PROTHROMBIN TIME (PATIENT) 15.3 SEC (9.7-13.0)
[2023-05-21 20:03] LABS: ACTIVATED PTT 37.6 SECONDS (25.2-36.5); CREATININE 4.5 mg/dL (0.55-1.3); SGOT/AST 20 U/L (15-37); SGPT/ALT 19 U/L (13-61)
[2023-05-21 20:04] LABS: BILIRUBIN,TOTAL 0.6 mg/dL (0.2-1)
[2023-05-21 20:06] LABS: ALK PHOS 183 U/L (45-117)
[2023-05-21 20:10] LABS: GLUCOSE,RANDOM 479 mg/dL (74-106)
[2023-05-21] MEDS ORDERED: INSULIN REGULAR HUMAN 100 UNITS/ML *VIAL IVPUSH ONE (20:35)
[2023-05-21] MEDS ORDERED: TRANEXAMIC ACID 1000 MG/10 ML VIAL IVPUSH ONE (22:40)
[2023-05-21] MEDS ORDERED: TRANEXAMIC ACID 1000 MG/10 ML VIAL ONE (22:46)
[2023-05-21] MEDS ORDERED: MELATONIN 5 MG TABLETS PO PRN (23:36)
[2023-05-21] MEDS ORDERED: SENNOSIDES 8.6MG TABLET (FP) PO PRN (23:38)
[2023-05-22 04:09] VITALS: BMI 21.7
[2023-05-22 05:50] VITALS: RESP 18
[2023-05-22] MEDS: MIDODRINE HCL 5 MG TABLET PO SCH ×2 (06:11→14:14)
[2023-05-22] MEDS ORDERED: SEVELAMER CARBONATE 800 MG TAB (FP) PO SCH (08:00)
[2023-05-22 09:15] LABS: BASO % 0.9 % (0-2.0); EOS % 0.6 % (0-4.5); HEMATOCRIT 33.3 % (35.4-49); HEMOGLOBIN 10.4 GM/dL (11.7-16.9); MCH 30.5 pg (25.7-33.7); MCHC 31.2 g/dl (32.0-35.9); MEAN CELL VOLUME 97.8 fl (80-96); MEAN PLT VOLUME 9.9 fl (7.5-11.1); MONO % 8.2 % (3.8-10.2); NEUT % 81.3 % (42.8-82.8); PLATELET COUNT 204 10^3/uL (134-434); RBC 3.41 M/mm3 (4.00-5.60); RDW 14.8 % (11.9-15.9); WHITE BLOOD COUNT 8.7 K/mm3 (4.0-10.0)
[2023-05-22 09:38] LABS: CHLORIDE 95 mmol/L (98-107); POTASSIUM 4.8 mmol/L (3.5-5.1); SODIUM 131 mmol/L (136-145)
[2023-05-22 09:39] LABS: CALCIUM 9.6 mg/dL (8.5-10.1)
[2023-05-22 09:40] LABS: ANION GAP 11 mmol/L (4-13); BLOOD UREA NITROGEN 38.3 mg/dL (7-18); CO2 25 mmol/L (21-32)
[2023-05-22 09:43] LABS: CREATININE 4.7 mg/dL (0.55-1.3)
[2023-05-22 09:53] LABS: GLUCOSE,RANDOM 451 mg/dL (74-106)
[2023-05-22] MEDS ORDERED: INSULIN (LEVEMIR) 100 UNITS/ML UNITS SQ SCH (10:00)
[2023-05-22] MEDS ORDERED: MIDODRINE HCL 2.5 MG TABLET PO SCH (10:00)
[2023-05-22] MEDS ORDERED: PANTOPRAZOLE 40 MG TABLET PO SCH (10:00)
[2023-05-22] MEDS ORDERED: APIXABAN 2.5 MG TABLET PO SCH (10:00)
[2023-05-22] MEDS ORDERED: CALCITRIOL 0.25 MCG CAPSULE (FP) PO SCH (10:00)
[2023-05-22] MEDS ORDERED: CLOPIDOGREL BISULFATE 75 MG TABLET (FP) PO SCH (10:00)
[2023-05-22] MEDS ORDERED: TORSEMIDE 20 MG TABLET (FP) PO SCH (10:00)
[2023-05-22] MEDS: SEVELAMER CARBONATE 800 MG TAB (FP) PO SCH ×2 (11:53→17:58)
[2023-05-22] MEDS: INSULIN SLIDING SCALE (NOVOLOG) 1 VIAL SQ SCH ×2 (11:55→16:02)
[2023-05-22] MEDS ORDERED: ACETAMINOPHEN 325 MG TABLET (FP) PO PRN (11:59)
[2023-05-22] MEDS: LIPASE/PROTEASE/AMYLASE 24,000 UNIT CAPSULE PO SCH ×2 (12:23→17:58)
[2023-05-22 14:28] VITALS: BP 124/70; PULSE 73; TEMP 98.3
[2023-05-22] MEDS ORDERED: INSULIN (NOVOLOG) ASPART 100 UNITS/ML 10ML VIAL SQ ONE ×2 (15:50→16:30)
[2023-05-22] MEDS ORDERED: ATORVASTATIN CA 80 MG TABLET (FP) PO SCH (22:00)
== END 2023-05-22 18:30 | disposition home or self-care (01) ==
LOC: JER 18:06 → JERBED 23:06 → J7W 05-22 02:16
PROVIDERS: ADMIT Internal Medicine; ATTEND Internal Medicine
PROC: 3E013VG Introduction of Insulin into Subcutaneous Tissue, Percutaneous Approach (ICD-10-PCS; principal; 2023-05-21)
DX: T82.41XA Breakdown (mechanical) of vascular dialysis catheter, initial encounter (principal); J90 Pleural effusion, not elsewhere classified; N18.6 End stage renal disease; E11.9 Type 2 diabetes mellitus without complications; I50.9 Heart failure, unspecified; Z99.2 Dependence on renal dialysis; I95.9 Hypotension, unspecified; E78.5 Hyperlipidemia, unspecified; Z89.422 Acquired absence of other left toe(s); X58.XXXA Exposure to other specified factors, initial encounter; Z88.1 Allergy status to other antibiotic agents; Y93.89 Activity, other specified
CPT/HCPCS: 36415; 71046-TC-FY; 80048; 80053; 82962; 85025; 85610; 85730; 86850; 86900; 86901; 96372; 96374; 96375; 99285-25; G0378